=== PATIENT | male | born 1965 | race Caucasian/White ===

== ENCOUNTER 2016-12-06 17:37 | Emergency (ER) | payer BC ==
[~2016-12-06] VITALS: Ht 177.8 cm; Wt 98.7 kg
[~2016-12-06 17:37] MED LIST: ALTACE10 MG PO; ASPIRIN81 M1 PO; COREG6.25 MG PO; LIPITOR80 MG PO; PROTONIX40 MG PO; ZANTAC150 MG PO; ZETIA10 MG PO
[2016-12-06 18:15] LABS: BASOPHIL COUNT 0.1 K/uL (0-0.1); EOSINOPHIL (%) 4.1 % (0-5); EOSINOPHIL COUNT 0.4 K/uL (0-0.3); HEMATOCRIT 47.5 % (38.0-50.0); IMMATURE GRANULOCYTE (%) 0.2 % (0.0-0.7); INSTRUMENT ABS NEUTROPHIL CT 5.6 K/uL; LYMPHOCYTE COUNT 2.9 K/uL (1.0-2.8); MCH 30.8 PG (29.0-34.0); MCHC 33.9 G/DL (30.0-36.0); MCV 90.8 FL (86-99); MONOCYTE (%) 6.6 % (3-12); MONOCYTE COUNT 0.6 K/uL (0-0.8); NEUTROPHIL (%) 58.2 % (45-76); NEUTROPHIL COUNT 5.6 K/uL (1.8-6.4); PLATELET COUNT 254 K/uL (156-360); RBC DIS.WIDTH-CV 12.4 % (11.8-14.6); RBC DIS.WIDTH-SD 40.7 % (39-53); RED BLOOD COUNT 5.23 M/uL (4.00-5.50); WHITE BLOOD COUNT 9.7 K/uL (4.1-10.2)
[2016-12-06 18:54] LABS: CHLORIDE 107 mEq/L (99-109); POTASSIUM 3.6 mEq/L (3.7-5.4); SODIUM 142 mEq/L (136-147)
[2016-12-06 18:56] LABS: GLUCOSE 96 mg/dL (70-99)
[2016-12-06 18:57] LABS: ANION GAP 12 MEQ/L (2-14)
[2016-12-06 18:58] LABS: TOTAL BILIRUBIN 0.5 mg/dL (0.0-1.0)
[2016-12-06 18:59] LABS: ALKALINE PHOSPHATASE 59 IU/L (3-129)
[2016-12-06 19:00] LABS: GFR ESTIMATE (CALCULATED) > 59 mL/min/
[2016-12-06 19:01] LABS: UREA NITROGEN (BUN) 10 mg/dL (9-23)
[2016-12-06 19:03] LABS: LIPASE 89 U/L (1.0-51.0)
[2016-12-06 19:07] LABS: TROP-I INTERPRETATION NEGATIVE; TROPONIN-I < 0.01 ng/mL (0.0-0.30)
[2016-12-06] MEDS ORDERED: TYLENOL REGULA325 MG PO (19:34)
[2016-12-06 19:41] VITALS: BP 136/90
== END 2016-12-06 19:42 | disposition home or self-care (01) ==
LOC: EME 17:37
PROVIDERS: Emergency Medicine
DX: R10.13 Epigastric pain (principal); R74.8 Abnormal levels of other serum enzymes; K22.70 Barrett's esophagus without dysplasia; I10 Essential (primary) hypertension; E11.9 Type 2 diabetes mellitus without complications; E78.5 Hyperlipidemia, unspecified; I25.2 Old myocardial infarction; Z95.1 Presence of aortocoronary bypass graft; Z87.891 Personal history of nicotine dependence; Z79.82 Long term (current) use of aspirin
CPT/HCPCS: 71010; 76705; 80053; 83690; 84484; 85025; 93005; 99281; 99284